=== PATIENT | female | born 1985 | race American Indian/Alaskan Native ===

== ENCOUNTER 2020-10-20 21:28 | Emergency (ER) | payer MEDICARE ==
[2020-10-20] MEDS ORDERED: ASPIRIN 325 MG TAB PO ONE (23:10)
[2020-10-21 00:03] LABS: Basophils % (Auto) 0.3 % (0.0-1.8); Eosinophils # (Auto) 0.2 K/mm3 (0.0-0.4); Eosinophils % (Auto) 2.4 % (0.0-4.3); Hematocrit 35.8 % (30.3-42.9); Lymphocytes # (Auto) 2.5 K/mm3 (1.2-5.4); Lymphocytes % (Auto) 27.1 % (13.4-35.0); Mean Corpuscular HGB Conc 34 % (30-34); Mean Corpuscular Volume 99 fl (79-97); Platelet Count 200 K/mm3 (140-440); Red Blood Count 3.62 M/mm3 (3.65-5.03); Red Cell Distribution Width 15.3 % (13.2-15.2)
[2020-10-21 00:07] LABS: Blood Urea Nitrogen 9 mg/dL (7-17); Calcium 9.4 mg/dL (8.4-10.2); Hemolysis Index 5
[2020-10-21 00:11] LABS: BUN/Creatinine Ratio 18
--- NOTE | 2020-10-21 00:13 | XRay Report ---
CHEST 1 VIEW INDICATION / CLINICAL INFORMATION: Chest Pain. COMPARISON: None available. FINDINGS: SUPPORT DEVICES: None. HEART / MEDIASTINUM: No significant abnormality. LUNGS / PLEURA: No significant pulmonary or pleural abnormality. No pneumothorax. ADDITIONAL FINDINGS: No significant additional findings. IMPRESSION: 1. No acute findings. Signer Name: Karina Rubio MD Signed: 10/21/2020 12:09 AM Workstation Name: [id number]
[2020-10-21 00:17] LABS: Bilirubin,Urine NEG (Negative); Blood,Urine NEG (Negative); Color,Urine Yellow (Yellow); Mucus,Urine FEW /HPF; Protein,Urine <15 mg/dL mg/dL (Negative); Urobilinogen,Urine < 2.0 mg/dL (<2.0)
[2020-10-21] MEDS ORDERED: KETOROLAC 60 MG/2 ML INJ ONE (04:42)
--- NOTE | 2020-10-21 07:13 | Emergency Department Report ---
ED Chest Pain HPI - General Chief Complaint: Chest Pain Stated Complaint: FLANK PAIN/CP/HURTS TO BREATH Time Seen by Provider: 10/21/20 06:55 Source: patient Mode of arrival: Ambulatory Limitations: No Limitations - History of Present Illness Initial Comments: 35-year-old female, history of seizures and migraine headaches, presents to the ED with complaint of bilateral flank pain, left worse than right. Patient reports symptom onset 2 days ago. She also reports some allergic component to the pain. She reports slight cough, denies fever vomiting diarrhea, leg pain or swelling. Patient states left flank pain radiates into left lower quadrant and suprapubic area. She reports some white vaginal discharge, which she suspects is a yeast infection. She denies any dysuria, hematuria, frequency. MD Complaint: other (Bilateral flank pain ) -: days(s) (2) Onset: during rest Pain Location: other (Lateral flanks) Pain Radiation: other (Left lower quadrant) Severity: moderate Severity scale (0 -10): 7 Consistency: intermittent Improves With: nothing Worsens With: nothing re: dyspnea. denies: nausea, vomting, diaphoresis Other Symptoms: cough. denies: fever, leg swelling Treatments Prior to Arrival: none - Related Data Previous Rx's Medication Instructions Recorded Last Taken Type Fluconazole (Nf) [Diflucan TAB] 150 mg PO ONCE #1 tablet 10/21/20 Unknown Rx Naproxen [Naprosyn] 500 mg PO BID #20 tablet 10/21/20 Unknown Rx traMADoL [Ultram] 50 mg PO Q6HR PRN #7 tablet 10/21/20 Unknown Rx Allergies Allergy/AdvReac Type Severity Reaction Status Date / Time amoxicillin [From Augmentin] Allergy Hives Verified 10/20/20 23:09 clavulanic acid Allergy Hives Verified 10/20/20 23:09 [From Augmentin] Penicillins Allergy Itching Verified 10/20/20 23:09 Heart Score - HEART Score History: Slightly suspicious EKG: Normal Age: < 45 Risk factors: No known risk factors Troponin: < normal limit HEART Score: 0 ED Review of Systems ROS: Stated complaint: FLANK PAIN/CP/HURTS TO BREATH Other details as noted in HPI Comment: All other systems reviewed and negative Constitutional: denies: chills, fever Respiratory: cough, shortness of breath Cardiovascular: chest pain Genitourinary: denies: dysuria, frequency, hematuria Musculoskeletal: back pain ED Past Medical Hx - Past Medical History Previous Medical History?: Yes Hx Headaches / Migraines: Yes Hx Seizures: Yes - Surgical History Past Surgical History?: Yes Additional Surgical History: Tubal Ligation. Partial Hysterectomy - Social History Smoking Status: Never Smoker Substance Use Type: Marijuana - Medications Home Medications: Home Medications Medication Instructions Recorded Confirmed Last Taken Type Fluconazole (Nf) [Diflucan TAB] 150 mg PO ONCE #1 tablet 10/21/20 Unknown Rx Naproxen [Naprosyn] 500 mg PO BID #20 tablet 10/21/20 Unknown Rx traMADoL [Ultram] 50 mg PO Q6HR PRN #7 tablet 10/21/20 Unknown Rx ED Physical Exam - General Limitations: No Limitations General appearance: alert, in no apparent distress - Head Head exam: Present: atraumatic, normocephalic - Eye Eye exam: Present: normal appearance, EOMI - ENT ENT exam: Present: mucous membranes moist - Neck Neck exam: Present: normal inspection - Respiratory Respiratory exam: Present: normal lung sounds bilaterally, chest wall tenderness (lateral left chest wall). Absent: respiratory distress - Cardiovascular Cardiovascular Exam: Present: regular rate, normal rhythm - GI/Abdominal GI/Abdominal exam: Present: soft, tenderness (Left lower quadrant tenderness). Absent: distended - Extremities Exam Extremities exam: Present: normal inspection. Absent: pedal edema, calf tenderness - Back Exam Back exam: Absent: CVA tenderness (R), CVA tenderness (L) - Neurological Exam Neurological exam: Present: alert, oriented X3, CN II-XII intact. Absent: motor sensory deficit - Psychiatric Psychiatric exam: Present: normal affect, normal mood - Skin Skin exam: Present: warm, dry, intact, normal color ED Course Vital Signs 10/20/20 10/21/20 10/21/20 22:44 02:34 02:36 Temperature 98.0 F Pulse Rate 74 74 73 Respiratory 18 13 10 L Rate Blood Pressure 99/65 Blood Pressure [Left] O2 Sat by Pulse 97 98 Oximetry 10/21/20 10/21/20 10/21/20 02:40 03:50 04:00 Temperature Pulse Rate 67 56 L 62 Respiratory 13 15 15 Rate Blood Pressure 131/65 118/61 Blood Pressure [Left] O2 Sat by Pulse 98 Oximetry 10/21/20 07:33 Temperature Pulse Rate 74 Respiratory 12 Rate Blood Pressure Blood Pressure 113/70 [Left] O2 Sat by Pulse 98 Oximetry ED Medical Decision Making - Lab Data Result diagrams: 10/20/20 23:15 10/20/20 23:15 - EKG Data -: EKG Interpreted by Me EKG shows normal: sinus rhythm, axis, intervals, QRS complexes, ST-T waves Rate: normal - EKG Data Interpretation: no acute changes - Radiology Data Radiology results: report reviewed, image reviewed - Medical Decision Making 35-year-old female presents to ED with bilateral flank pain. Patient has left lateral chest wall/flank tenderness. Vital signs are stable. Labs are un remarkable. Urine is negative for infection. D-dimer was sent which is within normal range. This x-ray is normal. Patient does not require admission at this time. She has been advised to follow-up on an outpatient basis. Prescriptions given. Return precautions given. - Differential Diagnosis PE, pneumonia, UTI, pyelonephritis Critical care attestation.: If time is entered above; I have spent that time in minutes in the direct care of this critically ill patient, excluding procedure time. ED Disposition Clinical Impression: Vaginitis, Chest wall pain, Abdominal pain Disposition: - TO HOME OR SELFCARE Is pt being admited?: No Condition: Stable Instructions: Vaginitis, [id number], Flank Pain, Adult, [id number], Chest Pain (ED) Prescriptions: Fluconazole (Nf) [Diflucan TAB] 150 mg PO ONCE #1 tablet Naproxen [Naprosyn] 500 mg PO BID #20 tablet traMADoL [Ultram] 50 mg PO Q6HR PRN #7 tablet PRN Reason: Pain Referrals: [facility] [Provider Group] - as needed LARON NOWAK MD [Staff Physician] - as needed CHRIS APONTE MD [Staff Physician] - as needed KEL HODGE MD [Referring] - as needed Time of Disposition: 08:29
[2020-10-21 07:33] VITALS: BP 113/70
[2020-10-21 07:52] LABS: INR 1.02 (0.87-1.13); Partial Thromboplastin Time 31.1 Sec. (24.2-36.6)
== END 2020-10-21 08:40 | disposition home or self-care (01) ==
LOC: ED 21:28
DX: N76.0 Acute vaginitis (principal); R07.89 Other chest pain; G43.909 Migraine, unspecified, not intractable, without status migrainosus; G40.909 Epilepsy, unspecified, not intractable, without status epilepticus; F12.10 Cannabis abuse, uncomplicated; Z98.51 Tubal ligation status; Z90.710 Acquired absence of both cervix and uterus; Z79.899 Other long term (current) drug therapy; Z88.0 Allergy status to penicillin; Z88.1 Allergy status to other antibiotic agents; Z88.8 Allergy status to other drugs, medicaments and biological substances
CPT/HCPCS: 36415; 71045; 80048; 81001; 84484; 85025; 85379; 85610; 85730; 93005; 99284; J1885

== ENCOUNTER 2020-12-27 15:04 | Emergency (ER) | payer MEDICARE ==
[2020-12-27 15:23] VITALS: BP 148/96
[2020-12-27] MEDS ORDERED: KETOROLAC 30 MG/1 ML INJ IV ONE (15:45)
[2020-12-27] MEDS ORDERED: dexAMETHasone 20 MG/5 ML VIAL IV ONE (15:45)
[2020-12-27] MEDS ORDERED: MORPHINE 4 MG/1 ML INJ IV ONE (15:45)
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
[2020-12-27] MEDS ORDERED: SODIUM CHLORIDE 0.9% 1000 ML 1,000 ML IV ONE (16:48)
[2020-12-27 17:07] LABS: Basophils % (Auto) 0.1 % (0.0-1.8); Eosinophils % (Auto) 0.5 % (0.0-4.3); Hematocrit 35.1 % (30.3-42.9); Hemoglobin 11.8 gm/dl (10.1-14.3); Lymphocytes # (Auto) 1.5 K/mm3 (1.2-5.4); Lymphocytes % (Auto) 17.4 % (13.4-35.0); Mean Corpuscular HGB Conc 34 % (30-34); Mean Corpuscular Volume 97 fl (79-97); Monocytes # (Auto) 0.9 K/mm3 (0.0-0.8); Monocytes % (Auto) 10.6 % (0.0-7.3); Platelet Count 277 K/mm3 (140-440); Red Blood Count 3.61 M/mm3 (3.65-5.03); Red Cell Distribution Width 12.7 % (13.2-15.2)
[2020-12-27 17:30] LABS: Alanine Aminotransferase 6 units/L (7-56); Albumin 3.5 g/dL (3.9-5); BUN/Creatinine Ratio 16; Blood Urea Nitrogen 8 mg/dL (7-17); Calcium 9.1 mg/dL (8.4-10.2); Hemolysis Index 21
--- NOTE | 2020-12-27 18:20 | Cat Scan Report ---
CT neck w con INDICATION / CLINICAL INFORMATION: 35 years Female; Severe throat pain/ s/p tonsillectomy. TECHNIQUE: Contiguous thin cut axial images obtained through the neck following IV contrast. Sagittal and barkley l reconstructions performed by the technologist. All CT scans at this location are performed using CT dose reduction for ALARA by means of automated exposure control. COMPARISON: None available. FINDINGS: MUCOSAL SPACE: The motion degrades the image quality. However, there also appears be relative irregul arity of the palatine soft tissues and correlation would be needed regarding timing of surgery this p atient "status post tonsillectomy". No definitive fluid collections are seen at within this region. T he narrowing of the nasopharyngeal airway may be exacerbated by the degree of motion. The epiglottis is appropriate in size. The laryngeal structures are fairly symmetric. LYMPH NODES: There are scattered cervical lymph nodes, particularly along the jugular chains bilatera lly which measure less than 1 cm in short axis dimension and are most likely reactive. SALIVARY GLANDS: The visualized parotid and submandibular glands demonstrate fairly symmetric attenua tion without calcification. There is mild symmetric prominence of the parotid glands without definiti ve focal lesions. THYROID GLAND: Unremarkable. PARANASAL SINUSES: Visualized paranasal sinuses and mastoid air cells are essentially clear. SPINE: No significant abnormality of the cervical spine appreciated. VASCULAR STRUCTURES: Vascular structures are grossly normal in appearance. IMPRESSION: 1. The motion degrades the image quality. However, there is relative irregularity of the palatine sof t tissues with mild edema likely related to the patient's history of tonsillectomy. However, no focal fluid collections or significant inflammatory changes are seen involving the remaining soft tissues of the neck. Signer Name: Memo Gonzalez MD Signed: 12/27/2020 6:15 PM Workstation Name: [id number]
--- NOTE | 2020-12-27 18:40 | Event Note ---
Date of service: 12/27/20 Face to Face: Patient reportedly had elective tonsillectomy approximately 1 week ago in [place]. She comes in with persistent pharyngeal pain. On my initial assessment, the patient is afebrile with reassuring vital signs, playing on her cellular phone, protecting her airway and is not stridulous. Th ere is no trismus. There is no malocclusion. There is elevation of the base of the tongue. Laboratory studies are reviewed and appreciated. CT scan of the neck reviewed and appreciated. Patient most likely experiencing a typical postoperative pain. Do not see indication for antibiotic therapy at this time. Liquid acetaminophen, liquid ibuprofen for pain. Patient still has a small quantity of liquid Oxycodone prescribed by her initial ENT physician in [place]. However, patient is approximately 1 week status post surgery, is protecting her airway, does not appear to have an acute surgical condition, do not see indication at this time for continued narcotic therapy, it is my opinion that conservative therapy as aforementioned is suitable. Patient to be given liquid prescriptions as mentioned, she can follow-up with local outpatient ENT, or follow-up with her ENT of record in [place]. The patient was evaluated in the emergency department for symptoms described in the history of present illness. He/she was evaluated in the context of the global COVID-19 pandemic, which necessitated consideration that the patient might be at risk for infection with the virus that causes COVID-19. Institutional protocols and algorithms that pertain to the evaluation of patients at risk for COVID-19 are in a state of rapid change based on information released by regulatory bodies including the CDC and federal and state organizations. These policies and algorithms were followed during the patient's care in the emergency department. Please note that these policies, procedures and recommendations changed on a rapid basis. Vital Signs 12/27/20 12/27/20 12/27/20 15:22 16:37 16:40 Temperature 98.9 F Pulse Rate 78 Respiratory 20 18 18 Rate Blood Pressure 148/96 O2 Sat by Pulse 99 100 Oximetry 12/27/20 17:07 Temperature Pulse Rate Respiratory 18 Rate Blood Pressure O2 Sat by Pulse Oximetry Lab Results 12/27/20 12/27/20 Range/Units 16:33 16:33 WBC 8.7 (4.5-11.0) K/mm3 RBC 3.61 L (3.65-5.03) M/mm3 Hgb 11.8 (10.1-14.3) gm/dl Hct 35.1 (30.3-42.9) % MCV 97 (79-97) fl MCH 33 H (28-32) pg MCHC 34 (30-34) % RDW 12.7 L (13.2-15.2) % Plt Count 277 (140-440) K/mm3 Lymph % (Auto) 17.4 (13.4-35.0) % Swift % (Auto) 10.6 H (0.0-7.3) % Eos % (Auto) 0.5 (0.0-4.3) % Baso % (Auto) 0.1 (0.0-1.8) % Lymph # (Auto) 1.5 (1.2-5.4) K/mm3 [place] # (Auto) 0.9 H (0.0-0.8) K/mm3 Eos # (Auto) 0.0 (0.0-0.4) K/mm3 Baso # (Auto) 0.0 (0.0-0.1) K/mm3 Seg Neutrophils % 71.4 H (40.0-70.0) % Seg Neutrophils # 6.2 (1.8-7.7) K/mm3 Sodium 136 L (137-145) mmol/L Potassium 4.0 (3.6-5.0) mmol/L Chloride 103.0 (98-107) mmol/L Carbon Dioxide 20 L (22-30) mmol/L Anion Gap 17 mmol/L BUN 8 (7-17) mg/dL Creatinine 0.5 L (0.6-1.2) mg/dL Estimated GFR > 60 ml/min BUN/Creatinine Ratio 16 % Glucose 87 (65-100) mg/dL Calcium 9.1 (8.4-10.2) mg/dL Total Bilirubin 0.20 (0.1-1.2) mg/dL AST 12 (5-40) units/L ALT 6 L (7-56) units/L Alkaline Phosphatase 38 (35-129) units/L Total Protein 6.6 (6.3-8.2) g/dL Albumin 3.5 L (3.9-5) g/dL Albumin/Globulin Ratio 1.1 % For this encounter I have reviewed the PA/RINKMAN documentation, treatment plan, medical decision making, and I had face to face time with this patient. CT neck w con INDICATION / CLINICAL INFORMATION: 35 years Female; Severe throat pain/ s/p tonsillectomy. TECHNIQUE: Contiguous thin cut axial images obtained through the neck following IV contrast. Sagittal and coronal reconstructions performed by the technologist. All CT scans at this location are performed using CT dose reduction for ALARA by means of automated exposure control. COMPARISON: None available. FINDINGS: MUCOSAL SPACE: The motion degrades the image quality. However, there also appears be relative irregularity of the palatine soft tissues and correlation would be needed regarding timing of surgery this patient "status post tonsillectomy". No definitive fluid collections are seen at within this region. The narrowing of the nasopharyngeal airway may be exacerbated by the degree of motion. The epiglottis is appropriate in size. The laryngeal structures are fairly symmetric. LYMPH NODES: There are scattered cervical lymph nodes, particularly along the jugular chains bilaterally which measure less than 1 cm in short axis dimension and are most likely reactive. SALIVARY GLANDS: The visualized parotid and submandibular glands demonstrate fairly symmetric attenuation without calcification. There is mild symmetric prominence of the parotid glands without definitive focal lesions. THYROID GLAND: Unremarkable. PARANASAL SINUSES: Visualized paranasal sinuses and mastoid air cells are essentially clear. SPINE: No significant abnormality of the cervical spine appreciated. VASCULAR STRUCTURES: Vascular structures are grossly normal in appearance. IMPRESSION: 1. The motion degrades the image quality. However, there is relati ve irregularity of the palatine soft tissues with mild edema likely related to the patient's history of tonsillectomy. However, no focal fluid collections or significant inflammatory changes are seen involving the remaining soft tissues of the neck. Signer Name: Memo Gonzalez MD Signed: 12/27/2020 5:15 PM Workstation Name: [id number]
== END 2020-12-27 19:05 | disposition home or self-care (01) ==
LOC: ED 15:04
DX: R07.0 Pain in throat (principal); J95.830 Postprocedural hemorrhage of a respiratory system organ or structure following a respiratory system procedure; G43.909 Migraine, unspecified, not intractable, without status migrainosus; G40.909 Epilepsy, unspecified, not intractable, without status epilepticus; F12.10 Cannabis abuse, uncomplicated; Z98.51 Tubal ligation status; Z90.710 Acquired absence of both cervix and uterus; Z79.899 Other long term (current) drug therapy; Z88.6 Allergy status to analgesic agent; Z88.0 Allergy status to penicillin; Z88.1 Allergy status to other antibiotic agents; Z91.040 Latex allergy status; Z88.8 Allergy status to other drugs, medicaments and biological substances
CPT/HCPCS: 36415; 70491; 80053; 85025; 96361; 96365; 96375; 99284; J1100; J1885; J2270; J7030; Q9967

== ENCOUNTER 2021-04-27 16:50 | Emergency (ER) | payer MEDICARE ==
[2021-04-27 17:25] VITALS: BP 130/90
--- NOTE | 2021-04-29 19:28 | Electrocardiograph Report ---
[facility] Test Date: 2021-04-27 Test Time: 17:29:47 Pat Name: SAVAGE SALAZAR Department: Room: Gender: F Tourist Information Assistant: BRODY : 1985 Requested By: YUMIKO BURDEN Order Number: [id number] Reading MD: Nawaf Cortez Measurements Intervals [place] Rate: 96 P: 45 UT: 130 QRS: 55 QRSD: 75 T: 35 QT: 324 QTc: 409 Interpretive Statements Sinus rhythm No previous ECG available for comparison Electronically Signed On 04-29-2021 19:28:43 EDT by Nawaf Cortez
== END 2021-04-27 17:29 | disposition left against medical advice (07) ==
LOC: ED 16:50
DX: R07.9 Chest pain, unspecified (principal); Z53.21 Procedure and treatment not carried out due to patient leaving prior to being seen by health care provider
CPT/HCPCS: 93005